=== PATIENT | male | born 1950 | race Two or more races ===

== ENCOUNTER 2017-11-17 04:40 | Day surgery (SDC) | payer OTHER | END 2017-11-17 15:30 | disposition home or self-care (01) | LOC: CIR.AMB 04:40 | DX: K40.90 Unilateral inguinal hernia, without obstruction or gangrene, not specified as recurrent (principal) ==

== ENCOUNTER 2020-04-10 09:32 | Outpatient (CLI) | payer OTHER | END 2020-04-10 09:33 | disposition home or self-care (01) | LOC: NUCLEAR 09:32 | PROVIDERS: ATTEND Internal Medicine | DX: I65.23 Occlusion and stenosis of bilateral carotid arteries (principal) ==

== ENCOUNTER 2021-03-26 08:18 | Outpatient (CLI) | payer OTHER | END 2021-03-26 08:20 | disposition home or self-care (01) | LOC: NUCLEAR 08:18 | PROVIDERS: ATTEND Internal Medicine | DX: R52 Pain, unspecified (principal) ==